=== PATIENT | female | born 1980 | race Two or more races ===

== ENCOUNTER 2019-03-22 14:15 | Emergency (ER) | payer MEDICAID, OTHER ==
[~2019-03-22] VITALS: Ht 167.6 cm; Wt 86.2 kg
[2019-03-22 14:32] VITALS: BP 136/89
== END 2019-03-22 15:11 | disposition home or self-care (01) ==
LOC: ER 14:23
DX: H66.91 Otitis media, unspecified, right ear (principal); Z88.0 Allergy status to penicillin; Z88.8 Allergy status to other drugs, medicaments and biological substances